=== PATIENT | female | born 1980 | race Caucasian/White ===

== ENCOUNTER → 2022-11-12 11:00 | Outpatient (CLI) | payer BC, SELFPAY ==
--- NOTE | ~2022-11-12 | US_ITS ---
EXAMINATION: US soft tissue upper back DATE: 11/12/2022 11:28 INDICATION: Right posterior chest mass. TECHNIQUE: Multiple grayscale and Doppler ultrasound images of the back were obtained. COMPARISON: None FINDINGS: There is 3.8 x 0.9 x 4.8 cm subcutaneous mass in the right posterior thorax that is isoecho ic to subcutaneous fat with similar echotexture. IMPRESSION: 1. 4.8 cm subcutaneous mass in right posterior thorax, likely a lipoma. Reviewed, dictated and finalized at location E.
== END ==
PROVIDERS: PCP Family Medicine; Visit Provider Family Medicine
DX: R22.2 Localized swelling, mass and lump, trunk (principal)
CPT/HCPCS: 76604